=== PATIENT | male | born 1985 | race African-American/Black ===

== ENCOUNTER 2017-08-31 19:10 | Emergency (ER) | payer SELFPAY ==
[~2017-08-31] VITALS: Ht 172.7 cm; Wt 73.5 kg
[2017-08-31 19:15] VITALS: BP 124/80
[2017-08-31] MEDS ORDERED: CEFTRIAXONE 1 G VIAL ONE (19:39)
[2017-08-31] MEDS ORDERED: LIDOCAINE /MPF 1% VIAL 5 ML VIAL ONE (19:39)
[2017-08-31] MEDS ORDERED: AZITHROMYCIN 250 MG TABLET ONE (19:40)
[2017-08-31] MEDS ORDERED: AZITHROMYCIN 250 MG TABLET PO ONE (20:00)
[2017-08-31] MEDS ORDERED: CEFTRIAXONE 1 G VIAL IM ONE (20:00)
== END 2017-08-31 19:52 | disposition home or self-care (01) ==
LOC: ER 19:11
DX: R36.9 Urethral discharge, unspecified (principal)
CPT/HCPCS: A4606; J0696; J3490; Z7610